=== PATIENT | female | born 1940 | race Caucasian/White ===

== ENCOUNTER 2017-01-03 15:06 | Day surgery (SDC) | payer OTHER ==
[~2017-01-03] VITALS: Ht 157.5 cm; Wt 73.0 kg
[~2017-01-03 15:06] MED LIST: ALLERGY EYE DRO10 ML BOTH EYES; DIOVAN320 MG PO; LIPITOR20 MG PO; MAXZIDE 37.5 M1 EACH PO; NORVASC2.5 MG PO; OXAYDO5 MG PO; PRESERVISION T1 EACH PO; PROVENTIL,2.5 MG/3 M IH; TOPROL XL100 MG PO; TYLENOL EXTRA500 MG PO; ZOLOFT50 MG PO
[2017-01-03 15:59] LABS: HEMATOCRIT 47.7 % (36.0-46.0); MCH 31.4 PG (29.0-34.0); MCHC 34.6 G/DL (30.0-36.0); MCV 90.7 FL (83-99); MEAN PLAT.VOLUME 9.8 uM^3 (9.5-12.4); PLATELET COUNT 319 K/uL (156-360); RBC DIS.WIDTH-CV 12.1 % (11.8-14.6); RBC DIS.WIDTH-SD 40.5 % (39-53); RED BLOOD COUNT 5.26 M/uL (3.80-5.20); WHITE BLOOD COUNT 7.6 K/uL (4.1-10.2)
[2017-01-03 16:08] LABS: CHLORIDE 99 mEq/L (99-109); POTASSIUM 3.6 mEq/L (3.7-5.4); SODIUM 134 mEq/L (136-147)
[2017-01-03 16:10] LABS: GLUCOSE 124 mg/dL (70-99)
[2017-01-03 16:11] LABS: ANION GAP 12 MEQ/L (2-14)
[2017-01-03 16:13] LABS: ALKALINE PHOSPHATASE 123 IU/L (3-129)
[2017-01-03 16:14] LABS: GFR ESTIMATE (CALCULATED) > 59 mL/min/
[2017-01-03 16:15] LABS: UREA NITROGEN (BUN) 15 mg/dL (9-23)
[2017-01-03] MEDS ORDERED: TYLENOL PM1 CAPLET PO (16:24)
[2017-01-03] MEDS ORDERED: FLONASE ALLERG9.9 ML BOTH NARES (16:25)
[2017-01-03] MEDS ORDERED: SPIRIVA1 INHALATI IH (16:27)
[2017-01-03 16:44] LABS: TOTAL BILIRUBIN 0.6 mg/dL (0.0-1.0)
[2017-01-03 16:45] VITALS: BP 127/75
[2017-01-03 19:12] VITALS: BP 164/89
[2017-01-03 20:04] VITALS: BP 143/83
== END 2017-01-03 20:30 | disposition home or self-care (01) ==
LOC: SDC 15:06
PROVIDERS: Ophthalmology
DX: H44.002 Unspecified purulent endophthalmitis, left eye (principal)
CPT/HCPCS: 80053; 85027; 87070; 87102; 87205; 88160; 88312; 93005; J0690; J0713; J1100; J1120; J1885; J2795; J3010; J3370